=== PATIENT | female | born 1965 | race Caucasian/White ===

== ENCOUNTER → 2016-08-23 | Outpatient (CLI) | payer OTHER ==
--- NOTE | 2016-08-23 13:28 | MA ---
Screening Digital Mammogram With Tomosynthesis Clinical Indications: Routine screening. Technique: Standard digital cephalocaudal and tomosynthesis mediolateral oblique projections are obt ained. The digital images are processed by the [employer] computer aided detection system. Comparison: June 2011, April 2009 and July 2007 Breast density: C; The breast tissue is heterogeneously dense, which could obscure detection of small masses. Findings: CAD was reviewed. No suspicious findings are identified. Impression: Negative mammogram. BI-RADS 1. Recommendation: Routine screening is recommended in one year, as long as physical examination is humberto ign in this patient with moderately dense breast parenchyma. [facility] will send a result letter to the patient. Negative mammography should not preclude additional workup of a clinically suspicious finding. The patient's information is entered into a reminder system with a target due date for her next mammo gram.
== END ==
LOC: FIMAGING 12:26
DX: Z12.31 Encounter for screening mammogram for malignant neoplasm of breast (principal)
CPT/HCPCS: G0202

== ENCOUNTER → 2016-11-09 | Outpatient (CLI) | payer OTHER ==
--- NOTE | 2016-11-09 18:06 | CPEEG ---
[f rep st] ELECTROENCEPHALOGRAM ELECTROENCEPHALOGRAM. DATE OF STUDY: 11/09/2016 DATE OF INTERPRETATION: 11/09/2016. INTERPRETATION: Normal EEG during wakefulness and brief drowsiness. There is no potentially epilep togenic abnormalities present during the recording. REPORT: This EEG contains 10 Hz alpha to the posterior head regions. There was no abnormal activat ion at rest, during photic stimulation or hyperventilation. The patient briefly became drowsy durin g the study. There was no abnormal activation during brief drowsiness or during times of arousal. /[id number]/MODL
== END ==
LOC: FCPNEURO 14:27
PROVIDERS: ATTEND Psychiatry & Neurology Neurology
DX: R29.818 Other symptoms and signs involving the nervous system (principal)

== ENCOUNTER → 2016-11-27 | Outpatient (CLI) | payer OTHER | LOC: BMCIMAGING 15:05 | PROVIDERS: ATTEND Family Medicine | DX: M25.561 Pain in right knee (principal); M79.89 Other specified soft tissue disorders ==

== ENCOUNTER → 2018-10-29 | Outpatient (CLI) | payer OTHER | LOC: BMCIMAGING 12:04 | PROVIDERS: ATTEND Family Medicine | DX: M95.2 Other acquired deformity of head (principal) ==